=== PATIENT | female | born 1955 | race Caucasian/White ===

== ENCOUNTER 2017-07-28 13:43 | Outpatient (CLI) | payer OTHER | END 2017-07-28 13:46 | disposition home or self-care (01) | LOC: EKG 13:43 → LAB 13:43 | DX: R07.9 Chest pain, unspecified (principal); Z01.810 Encounter for preprocedural cardiovascular examination ==

== ENCOUNTER 2017-08-03 05:17 | Day surgery (SDC) | payer OTHER ==
[2017-08-03] MEDS ORDERED: CODE1TAB37 PO (14:46)
[2017-08-03] MEDS ORDERED: DOXYCYCLINE HY100 MG PO (14:46)
== END 2017-08-03 16:15 | disposition home or self-care (01) ==
LOC: CIR.AMB 05:17
DX: N84.0 Polyp of corpus uteri (principal); N95.0 Postmenopausal bleeding